=== PATIENT | male | born 1995 | race Two or more races ===

== ENCOUNTER 2016-09-29 01:37 | Emergency (ER) | payer SELFPAY ==
[~2016-09-29] VITALS: Ht 182.9 cm; Wt 77.0 kg
[2016-09-29] MEDS ORDERED: LORAZEPAM 2MG/ML CPJ ONE (02:00)
[2016-09-29] MEDS ORDERED: HALOPERIDOL LACTATE 5MG/ML VIAL IM ONE (02:01)
[2016-09-29 04:16] LABS: HEMATOCRIT. 42.2 % (42.0-52.0); HEMOGLOBIN. 13.4 g/dL (14.0-18.0); MEAN CORPUSCULAR HEMOGLOBIN 20.8 pg (28.0-32.0); MEAN CORPUSCULAR HGB CONC 31.7 g/dL (31.0-37.0); MEAN CORPUSCULAR VOLUME 65.6 fL (80.0-94.0); MEAN PLATELET VOLUME 8.9 fl (7.4-10.4); PLATELET 246 x1000/uL (130-400); RED BLOOD CELL COUNT 6.44 mill/uL (4.7-6.1); RED CELL DISTRIBUTION WIDTH 14.9 % (11.6-14.6); WHITE BLOOD COUNT 15.6 x1000/uL (4.5-11.0)
[2016-09-29 04:18] LABS: DIFFERENTIAL COMMENT 1
[2016-09-29 04:30] LABS: ACETAMINOPHEN < 2 ug/mL (10-30); ANION GAP 16; CALCIUM 8.9 mg/dL (8.5-10.1); CARBON DIOXIDE 23 mEq/L (21-32); CHLORIDE 102 mEq/L (98-107); ETHANOL BLOOD < 10 mg/dL; INDEX HEMOLYSI 1 (1-3); INDEX ICTERIC 1 (1-4); INDEX LIPEMIC 1 (1-3); UREA NITROGEN BLOOD 10 mg/dL (7-21); eGFR > 60 mL/min (>60)
[2016-09-29 05:16] LABS: PLATELET ESTIMATE NORMAL
[2016-09-29 05:56] LABS: *AMPHETAMINES SCREEN URINE NEGATIVE (NEGATIVE); *BARBITURATES SCREEN URINE NEGATIVE (NEGATIVE); *BENZODIAZEPINES SCREEN URINE NEGATIVE (NEGATIVE); *COCAINE SCREEN URINE NEGATIVE (NEGATIVE); CANNABINOID URINE SCREEN PRESUMTIVE POSITIVE (NEGATIVE); ECSTASY MDMA SCREEN URINE NEGATIVE (NEGATIVE); METHADONE URINE SCREEN NEGATIVE (NEGATIVE); OPIATES URINE SCREEN NEGATIVE (NEGATIVE); PHENCYCLIDINE URINE SCREEN NEGATIVE (NEGATIVE)
[2016-09-29] MEDS ORDERED: SODIUM CHLORIDE 0.9% 10ML VIAL ONE (14:05)
[2016-09-29] MEDS ORDERED: IOHEXOL-300 100 ML BOTTLE ONE (14:05)
[2016-09-29] MEDS ORDERED: LORAZEPAM 2MG/ML CPJ IV ONE (20:15)
[2016-09-29] MEDS ORDERED: OLANZAPINE 10 MG/VIAL IM ONE (21:30)
[2016-09-30] MEDS ORDERED: HALOPERIDOL LACTATE 5MG/ML VIAL IM ONE (03:00)
[2016-09-30 11:28] VITALS: BP 128/74
== END 2016-09-30 15:35 | disposition home or self-care (01) ==
LOC: ER 01:42
DX: S30.0XXA Contusion of lower back and pelvis, initial encounter (principal); S00.81XA Abrasion of other part of head, initial encounter; F12.10 Cannabis abuse, uncomplicated; X58.XXXA Exposure to other specified factors, initial encounter; Y93.89 Activity, other specified; Y99.8 Other external cause status; Y92.89 Other specified places as the place of occurrence of the external cause
CPT/HCPCS: 36415; 70450; 71010; 74177; 80048; 80305; 80329; 85025; 96372; 96374; 99285; A4216; G0482; J1630; J2060; J3490; J7030; Q9967; Z7610; 80307